=== PATIENT | male | born 1990 | race Two or more races ===

== ENCOUNTER 2023-12-07 14:58 | Outpatient (CLI) | payer MEDICAID | END 2023-12-07 23:59 | disposition critical access hospital (66) | LOC: EMS 14:58 | DX: M54.50 Low back pain, unspecified (principal); M54.6 Pain in thoracic spine; R11.2 Nausea with vomiting, unspecified; R10.30 Lower abdominal pain, unspecified; R33.9 Retention of urine, unspecified | CPT/HCPCS: A0425; A0427; A0999 ==

== ENCOUNTER 2023-12-07 15:19 | Emergency (ER) | payer MEDICAID, OTHER ==
--- NOTE | 2023-12-07 15:31 | ED Physician Documentation ---
PD HPI ABD PAIN - Stated complaint Stated Complaint: RT FLANK PX - History obtained from History obtained from: Patient - History of Present Illness Timing - onset: Yesterday Timing - duration: Seconds Timing - details: Waxing and waning Pain level max: 6 Pain level now: 1 Quality: Sharp, Stabbing Location: Other (R flank) Radiation: Worsened by: Moving Associated symptoms: Other (Feels like he cannot empty his bladder all the way) Similar symptoms before: Has not had sx before Recently seen: Other (in [facility]) - Additional information Additional information: Patient reports he was in his usual state of health until yesterday when he began having right flank pain and a feeling like he cannot completely empty his bladder. He did not try anything at home. He is never had kidney stones before. Review of Systems Constitutional: denies: Fever, Chills : reports: Hesitancy. denies: Dysuria, Hematuria PD PAST MEDICAL HISTORY - Present Medications Home Medications: Ambulatory Orders Medication Instructions Recorded Confirmed Dicyclomine [Bentyl] 1 cap PO PRN PRN 12/07/23 12/07/23 Gabapentin [Neurontin] 1 cap PO PRN PRN 12/07/23 12/07/23 Ibuprofen 3 tab PO Q6HR 12/07/23 12/07/23 Loperamide [Imodium] 1 cap PO PRN PRN 12/07/23 12/07/23 Melatonin 1 tab PO PRN PRN 12/07/23 12/07/23 Naloxone HCl [Narcan] 1 spray INH PRN PRN 12/07/23 12/07/23 Ondansetron HCl 1 tab PO PRN PRN 12/07/23 12/07/23 Polyethylene Glycol 8000 1 packet PO PRN PRN 12/07/23 12/07/23 [Polyethylene Glycol] Promethazine [Phenergan] 0.5 tab PO Q6H PRN 12/07/23 12/07/23 Simethicone [Mylanta Gas Minis] 1 tab PO PRN PRN 12/07/23 12/07/23 cloNIDine [Catapres] 1 tab PO PRN PRN 12/07/23 12/07/23 hydrOXYzine HCL [Hydroxyzine HCl] 1 tab PO PRN PRN 12/07/23 12/07/23 methocarbamoL [Methocarbamol] 1 tab PO PRN PRN 12/07/23 12/07/23 traZODone [Desyrel] 1 tab PO PRN PRN 12/07/23 12/07/23 - Allergies Allergies/Adverse Reactions: Allergies Allergy/AdvReac Type Severity Reaction Status Date / Time No Known Drug Allergies Allergy Verified 12/07/23 15:30 PD ED PE NORMAL - General General: Alert and oriented X 3 - HEENT HEENT: Atraumatic - Neck Neck: Supple, no meningeal sign - Cardiac Cardiac: RRR, No murmur - Respiratory Respiratory: No respiratory distress - Abdomen Abdomen: Normal bowel sounds - Back Back: No CVA TTP - Extremities Extremities: No deformity - Neuro Neuro: Alert and oriented X 3, No motor deficit, No sensory deficit Results - Vitals Vitals: Vital Signs - 24 hr 12/07/23 15:21 Temperature 36.9 C Heart Rate 61 Respiratory 18 Rate Blood Pressure 146/74 H O2 Saturation 97 Oxygen O2 Source Room air - Labs Labs: Laboratory Tests 12/07/23 12/07/23 12/07/23 15:37 15:37 16:50 WBC 11.5 H RBC 5.55 Hgb 16.0 Hct 45.7 MCV 82.3 MCH 28.8 MCHC 35.0 RDW 11.9 L Plt Count 266 MPV 8.8 Neut # (Auto) 9.3 H Lymph # (Auto) 1.2 L [place] # (Auto) 0.9 Eos # (Auto) 0.0 Baso # (Auto) 0.0 Absolute Nucleated RBC 0.00 Nucleated RBC % 0.0 Sodium 135 Potassium 3.8 Chloride 101 Carbon Dioxide 26 Anion Gap 8.0 BUN 19 Creatinine 1.2 Estimated GFR (MDRD) 71 L Glucose 116 H Calcium 9.5 Total Bilirubin 0.6 AST 17 ALT 13 Alkaline Phosphatase 105 Total Protein 8.0 Albumin 4.5 Globulin 3.5 Albumin/Globulin Ratio 1.3 Urine Color DARK YELLOW Urine Clarity CLOUDY Urine pH 6.0 Ur Specific [place] 1.020 Urine Protein 30 H Urine Glucose (UA) NEGATIVE Urine Ketones 40 H Urine Occult Blood LARGE H Urine Nitrite NEGATIVE Urine Bilirubin SMALL H Urine Urobilinogen 1 (NORMAL) Ur Leukocyte Esterase NEGATIVE Urine RBC TNTC H Urine WBC 6-10 H Ur Squamous Epith Cells FEW Squamous Amorphous Sediment Moderate Urine Bacteria Moderate H Ur Microscopic Review INDICATED Urine Culture Comments NOT INDICATED PD Medical Decision Making - ED course Complexity details: reviewed results, considered differential (Renal colic, infected stone, musculoskeletal pain, urinary retention) ED course: Patient presents with acute onset right flank pain and urinary symptoms concerning for renal colic. Labs are reviewed and remarkable for hematuria. He is initially treated with IV Toradol pain is ongoing. He was given 1 mg of I V Dilaudid, has another trip to the bathroom where he feels that he passed a stone. CT scan shows no acute disease, no's explanation for his pain skillfully no renal colic, normal appendix. Given that he is feeling better we will discharge him home with conservative measures including p.o. ibuprofen. No sign of infection sepsis or obstructing stone. Departure - Departure Disposition: 01 Home, Self Care Clinical Impression: Flank pain, acute Hematuria Qualifiers: Hematuria type: other microscopic Qualified Code(s): R31.29 - Other microscopic hematuria Condition: Good Instructions: ED Acute Pain [facility] Comments: Today you experience significant flank pain as well as some blood in your urine this is likely related to a kidney stone that you have passed. There is no sign of an ongoing kidney stone which should cause you any pain on the CAT scan. We will have you follow-up with your primary care doctor, call today for an a ppointment to be seen in 1 week. Return to the emergency department for worsening pain fever chills or any other concerns.Take ibuprofen as needed for pain.
[2023-12-07 15:45] LABS: BASOPHILS % (AUTO) 0.1 %; HCT - HEMATOCRIT 45.7 % (42.0-52.0); LYMPHOCYTES # (AUTO) 1.2 10^3/uL (1.5-3.5); LYMPHOCYTES % (AUTO) 10.6 %; MEAN CORPUSCULAR HEMOGLOBIN 28.8 pg (27.0-31.0); MEAN CORPUSCULAR VOLUME 82.3 fL (80.0-94.0); MEAN PLATELET VOLUME 8.8 fL (7.4-11.4); MONOCYTES # (AUTO) 0.9 10^3/uL (0.0-1.0); MONOCYTES % (AUTO) 8.2 %; NEUTROPHILS # (AUTO) 9.3 10^3/uL (1.5-6.6); NEUTROPHILS % (AUTO) 80.8 %; PLT - PLATELET COUNT 266 10^3/uL (130-450); RED BLOOD COUNT 5.55 10^6/uL (4.70-6.10); RED CELL DISTRIBUTION WIDTH 11.9 % (12.0-15.0); WHITE BLOOD COUNT 11.5 x10^3/uL (4.8-10.8)
[2023-12-07] MEDS: KETOROLAC 15 MG/ML VIAL IVP STA (15:54)
[2023-12-07 15:57] LABS: ALBUMIN 4.5 g/dL (3.2-5.5); ALBUMIN/GLOBULIN RATIO 1.3 (1.0-2.2); BILIRUBIN,TOTAL 0.6 mg/dL (0.2-1.0); CALCIUM 9.5 mg/dL (8.5-10.3); CREATININE 1.2 mg/dL (0.6-1.3); POTASSIUM 3.8 mmol/L (3.5-4.5)
[2023-12-07 17:00] LABS: BILIRUBIN,URINE SMALL (NEGATIVE); GLUCOSE, URINE (UA) NEGATIVE (NEGATIVE); KETONES,URINE (UA) 40 mg/dL (NEGATIVE); LEUKOCYTE ESTERASE, URINE NEGATIVE (NEGATIVE); NITRITE,URINE NEGATIVE (NEGATIVE); OCCULT BLOOD,URINE LARGE (NEGATIVE); PROTEIN,URINE 30 mg/dL (NEGATIVE); UROBILINOGEN,URINE 1 (NORMAL) E.U./dL (NORMAL)
[2023-12-07 17:01] LABS: CLARITY,URINE CLOUDY (CLEAR)
[2023-12-07] MEDS ORDERED: HYDROmorphone 1 MG/ML CARPUJECT IM STA (17:05)
--- NOTE | 2023-12-07 17:05 | CT Report ---
PROCEDURE: Abdomen/Pelvis WO INDICATIONS: R flank pain, eval stone TECHNIQUE: A CT scan of the abdomen and pelvis was performed without the use of intravenous contrast. Images we re recorded and evaluated at appropriate window settings. Reformats: coronal and sagittal. For radiat ion dose reduction, the following was used: automated exposure control, adjustment of mA and/or kV ac cording to patient size. COMPARISON: None. FINDINGS: Image quality: Diagnostic. Lower chest: Unremarkable. Liver: No contour-deforming mass. Gallbladder and biliary tree: Within normal limits Spleen: No splenomegaly. Pancreas: No pancreatic ductal dilation. Adrenals: No adrenal nodule. Kidneys and ureters: No hydronephrosis. No renal cystic lesion which requires follow up. No solid mas s. Stomach, bowel and peritoneum: No bowel distension. No pathologic free fluid. Normal appendix. Lymph nodes: No central or retroperitoneal adenopathy. Vessels: No infrarenal aortic aneurysm. PELVIS Reproductive organs: Unremarkable. Bladder: No wall thickness, accounting for underdistention. Pelvic lymph nodes: No pelvic adenopathy by size criteria. Bones: No aggressive osseous abnormality. Other: No significant ventral or inguinal hernia. IMPRESSION: 1. No acute process. 2. No evidence of urinary tract calcification, nor obstruction. 3. Normal appendix. Reviewed by: Tanisha Sena MD on 12/07/2023 5:04 PM PST Approved by: Tanisha Sena MD on 12/07/2023 5:04 PM PST Station ID: [id number]
[2023-12-07 17:13] LABS: AMORPHOUS SEDIMENT,UR Moderate /LPF; BACTERIA,URINE Moderate /HPF (None Seen); RBC,URINE TNTC /HPF (0-5); SQUAMOUS EPITHELIAL CELL,UR FEW Squamous (<= Few)
[2023-12-07] MEDS: ONDANSETRON 4 MG/2 ML VIAL IVP STA (17:53)
[2023-12-07 17:59] VITALS: BP 134/82; O2SAT 98
== END 2023-12-07 17:50 | disposition home or self-care (01) ==
LOC: ED 15:19
DX: R10.9 Unspecified abdominal pain (principal); R31.29 Other microscopic hematuria; Z79.899 Other long term (current) drug therapy
CPT/HCPCS: 36415; 80053; 81001; 81003; 85025; 87086; 96374; 99283